=== PATIENT | female | born 1950 | race Caucasian/White ===

== ENCOUNTER 2017-11-01 10:40 | Outpatient (CLI) | payer MEDICARE | END 2017-11-01 10:41 | disposition home or self-care (01) | LOC: BICRAD 10:40 | PROVIDERS: ATTEND Family Medicine | DX: M54.5 Low back pain (principal); M54.6 Pain in thoracic spine; M47.896 Other spondylosis, lumbar region; M43.16 Spondylolisthesis, lumbar region; M47.894 Other spondylosis, thoracic region; M41.9 Scoliosis, unspecified | CPT/HCPCS: 72070; 72100 ==

== ENCOUNTER 2018-03-24 14:09 | Outpatient (CLI) | payer MEDICARE | END 2018-03-24 14:10 | disposition home or self-care (01) | LOC: BICMAMMO 14:09 | PROVIDERS: ATTEND Family Medicine | DX: Z13.820 Encounter for screening for osteoporosis (principal); Z78.0 Asymptomatic menopausal state; M85.852 Other specified disorders of bone density and structure, left thigh; M85.88 Other specified disorders of bone density and structure, other site | CPT/HCPCS: 77080 ==

== ENCOUNTER 2018-05-24 10:19 | Outpatient (CLI) | payer MEDICARE | END 2018-05-24 10:20 | disposition home or self-care (01) | LOC: BICRAD 10:19 | PROVIDERS: ATTEND Family Medicine | DX: R06.02 Shortness of breath (principal) | CPT/HCPCS: 71046 ==

== ENCOUNTER 2018-06-07 10:56 | Outpatient (CLI) | payer MEDICARE | END 2018-06-07 10:57 | disposition home or self-care (01) | LOC: BICMRI 10:56 | PROVIDERS: ATTEND Anesthesiology Pain Medicine | DX: M54.14 Radiculopathy, thoracic region (principal) | CPT/HCPCS: 72146 ==

== ENCOUNTER 2018-07-24 16:50 | Outpatient (CLI) | payer MEDICARE ==
--- NOTE | 2018-07-25 09:43 | MRI ---
MRI RIGHT KNEE WITHOUT CONTRAST: Date: 07/24/18 HISTORY: S83.281A tear of lateral meniscus of the right knee. COMPARISON: MRI right knee from 2013. FINDINGS: Medial Meniscus: Evidence of prior posterior horn medial meniscal repair which is intact. No acute superimposed menisc al tear. Lateral Meniscus: Intact. ACL, PCL, MCL, LCLC: Intact. Extensor Mechanism: Quadriceps tendon, patella, and patellar tendon are all intact. Cartilage: Patellofemoral compartment: There are near full thickness cartilage fissures in the medial trochlea without underlying reactive marrow changes. Medial compartment: There is 25-50% cartilage fraying of the medial compartment without subchondral reactive marrow changes. Lateral compartment: Intact. Muscles: Muscle signal and bulk is normal. Soft Tissues: Trace popliteal cyst. No significant joint effusion. IMPRESSION: 1. No acute internal derangement. Prior medial meniscal repair. 2. Low grade deep infrapatellar bursa effusion. POS: TPC
== END 2018-07-24 16:51 | disposition home or self-care (01) ==
LOC: MRI 16:50
PROVIDERS: ATTEND Orthopaedic Surgery
DX: S83.281A Other tear of lateral meniscus, current injury, right knee, initial encounter (principal); M25.461 Effusion, right knee; Z98.890 Other specified postprocedural states

== ENCOUNTER 2018-10-24 13:46 | Outpatient (CLI) | payer MEDICARE ==
[~2018-10-24 13:46] MED LIST: Gadobenate Dimeglumine 529 MG/1 ML (20ML VIAL) ONE
[2018-10-24 14:45] LABS: Estimated GFR-MDRD - POC Greater than 90
--- NOTE | 2018-10-24 15:58 | MRI ---
MRI BRAIN WITH AND WITHOUT CONTRAST: HISTORY: Ataxia. Vertigo. Unstable gait for many years. COMPARISON: None. TECHNIQUE: Brain MRI is performed with and without intravenous Gadolinium administration. Multisequential, mult iplanar imaging is performed. FINDINGS: No parenchymal hemorrhage. No extraaxial hematoma. No parenchymal mass, mass effect, or midline maria c ft. Brain volume, age appropriate. Cortical carlos-white matter differentiation is preserved. Ventri cles and sulci are patent and symmetric. Central arterial flow voids are maintained. Absent restricted diffusion. Minimal T2 and FLAIR white matter hyperintensities likely due to chronic small-vessel ischemic change . Mild mucosal disease involving the ethmoid air cells. 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 The possibility of a neoplasm in the rig ht maxillary sinus is raised, measuring 2.5 x 1.9 cm. This lesion is noted on a previous MRI from 11/06/2016. Nevertheless, ENT consultation is recommended. No pathologic enhancement of the brain parenchyma. IMPRESSION: 1. Absent restricted diffusion. No acute infarct. 2. Minimal chronic small-vessel ischemic change of the white matter. 3. 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 ENT consultation is recommended. CODE T POS: STEPHANIE
== END 2018-10-24 13:47 | disposition home or self-care (01) ==
LOC: BICMRI 13:46
PROVIDERS: ATTEND Neurological Surgery
DX: R27.0 Ataxia, unspecified (principal); R42 Dizziness and giddiness; I67.82 Cerebral ischemia
CPT/HCPCS: 70553; 82565

== ENCOUNTER 2018-11-23 10:27 | Outpatient (CLI) | payer MEDICARE | END 2018-11-23 10:28 | disposition home or self-care (01) | LOC: BICMAMMO 10:27 | PROVIDERS: ATTEND Family Medicine | DX: Z12.31 Encounter for screening mammogram for malignant neoplasm of breast (principal) | CPT/HCPCS: 77063; 77067 ==

== ENCOUNTER 2019-02-14 10:49 | Outpatient (CLI) | payer MEDICARE | END 2019-02-14 10:50 | disposition home or self-care (01) | LOC: CTENTCT 10:49 | PROVIDERS: ATTEND Specialist | DX: J34.89 Other specified disorders of nose and nasal sinuses (principal); R51 Headache | CPT/HCPCS: 70486 ==

== ENCOUNTER 2019-04-26 11:23 | Day surgery (SDC) | payer MEDICARE ==
[2019-04-25 12:41] VITALS: BMI 26.4
[2019-04-26] MEDS ORDERED: Oxymetazoline HCl 0.05% ( 15 ML ) ONE ×2 (13:58→16:44)
[2019-04-26 14:03] LABS: Anion Gap 11 mmol/L (10-20); BUN (Urea Nitrogen) 11 mg/dL (9.8-20.1); Calc. Creatinine Clearance 84 mL/min (70-130); Calcium 10.1 mg/dL (7.8-10.44); Carbon Dioxide 27 mmol/L (23-31); Chloride 107 mmol/L (98-107); Estimated GFR-MDRD 81; Glucose 85 mg/dL (80-115); Potassium 3.7 mmol/L (3.5-5.1); Sodium 141 mmol/L (136-145)
[2019-04-26] MEDS ORDERED: Lidocaine 1% w/Epinephrine 1:100K 20 ML VIAL ONE (16:43)
[2019-04-26] MEDS ORDERED: EPINEPHrine 1 MG/ML AMP ONE (16:46)
[2019-04-26] MEDS ORDERED: Fentanyl 100 MCG/2 ML VIAL ONE ×2 (16:48→18:12)
[2019-04-26] MEDS ORDERED: Bacitracin Zinc Ointment 30 gm TUBE ONE (17:37)
--- NOTE | 2019-04-27 01:00 | OP ---
DATE OF PROCEDURE: 04/26/2019 PREOPERATIVE DIAGNOSES: Chronic sinusitis, deviated septum, right maxillary sinus mass, hypertrophic inferior turbinates. POSTOPERATIVE DIAGNOSES: Chronic sinusitis, deviated septum, right maxillary sinus mass, hypertrophic inferior turbinates. PROCEDURES PERFORMED: Bilateral nasal endoscopy with maxillary antrostomy, bilateral nasal endoscopy with total ethmoidectomy, bilateral nasal endoscopy with frontal sinusotomy, bilateral nasal endoscopy with sphenoidotomy, bilateral nasal endoscopy with submucosal resection of inferior turbinates and septoplasty. DESCRIPTION OF PROCEDURE: BILATERAL NASAL ENDOSCOPY WITH SUBMUCOSAL RESECTION OF INFERIOR TURBINATES AND SEPTOPLASTY: After consent was obtained, the patient was identified, brought to the operating room, and placed on the operating room table in the supine position. Consent was obtained, notifying the patient of the possibility of additional infections, bleeding, brain injury, and eye/orbital injury. The patient was placed on the operating room table, and general endotracheal anesthesia and intravenous access was obtained. The patient was then positioned, prepped and draped for endoscopic sinus surgery. Nasal preparation included trimming nasal vestibular hairs and spraying in topical Afrin. We then placed Afrin topical solution on nasal pledgets and strategically located them intranasally. The perinasal mucosa was injected with 1% lidocaine with 1:100,000 epinephrine in the submucoperichondrial plane of the septum, lateral nasal wall, and anterior to the uncinate. The patient was then prepped and draped in a sterile fashion and positioned for endoscopic sinus surgery. With the 0-degree endoscope, the patient underwent systematic nasal endoscopy. There were no suspicious internasal masses or lesions identified. We then focused our attention to the osteomeatal complex region under the middle turbinate. The inferior turbinates were visualized with a 0 degree endoscope and outfractured with a Janett elevator. The inferior medial aspect was cauterized with the electrocautery. Hemostasis was obtained . After adequate airway was established, we turned our attention to the contralateral side and used a similar procedure. Again, a Janett elevator was used to outfracture inferior turbinates under endoscopic visualization. With a suction cautery, the free inferior medial aspect was cauterized under direct visualization along the length of the inferior turbinate. At this point, we then turned our attention to the contralateral side and proceeded with endoscopic sinus surgery. At the completion of the case, Rice keel splints were placed in the ethmoid cavities after the ethmoidectomy. There were no complications. The patient tolerated the procedure well and was discharged to the recovery room in stable condition prior to return to the preoperative day stay with ultimate discharge home. Prescriptions for pain medication and antibiotics were provided. The patient received intramuscular Depo-Medrol during the case. After local anesthesia was infiltrated into the submucoperichondrial plane, a standard [place] incision was made with a #15 blade down to the level of the septal cartilage. The caudal elevator was used to elevate the mucoperichondrium from the underlying cartilage. We then proceeded beyond the bony cartilaginous junction and elevated the bony periosteum as well. Great attention was paid to the spur to prevent rent formation in the septal flap. A transcartilaginous incision was then made, while preserving an adequate dorsal and caudal cartilaginous strut for tip support. The deformed cartilage was removed and disarticulated from the bony cartilaginous junction and maxillary crest. This was placed in saline and would later be crushed and returned to the mucoperichondrial envelope. We then elevated the contralateral periosteum from the bony cartilaginous region and removed the deformed portions of the bone and bony spurs. The cartilage was then crushed and placed back into the mucoperichondrial envelope and the mucosa was re-approximated with a quilting stitch composed of rapidly absorbent gut suture. The Iker incision was also closed with interrupted gut suture. At the completion of the case, Mccray splints were placed and suture secured to the caudal septum. SPHENOIDOTOMY: The anterior face of the sphenoid was identified and entered in its extreme anteroinferior aspect. A sphenoid punch was then used to enlarge the sphenoidotomy and no injury to the optic nerve or internal carotid artery occurred. FRONTAL SINUSOTOMY: Following the ethmoidectomy, we then turned our attention to the frontal nasal recess. The agger nasi cells were addressed and the frontal recess was exposed. The natural opening to the frontal sinus was identified. At this point, any obstructing shrouds of mucosa and bony fragments were removed with a curved microdebrider. The wound was then examined and found to be free of any obstructing debris. We then turned our attention to the contralateral side and performed a similar procedure again under endoscopic visualization using a 45-degree scope. We were able to visualize the frontal recess. Obstructing shrouds of mucosa and bone were removed with a microdebrider. The natural os of frontal sinus was identified and enlarged and irrigated. At this point, the frontal sinusotomy was completed and we turned to the next area of concern. TOTAL ETHMOIDECTOMY: The anterior face of the ethmoid bulla was entered and with the micro-debrider, dissection continued posteriorly to the ground lamella. The limits of dissection included the insertion of the middle turbinate, medial orbital wall, and base of skull. We similarly identified the frontal recess and removed shrouds of bone and debris in that region to obtain patency into the agger nasi region and frontal recess. We then entered the ground lamella and its anteroinferior aspect and proceeded posteriorly, opening the posterior ethmoid air-cell system. Again, the limits of dissection included the base of skull and medial orbital wall. MAXILLARY ANTROSTOMY: The uncinate was then identified and the extent of the uncinate was appreciated by out-fracturing the uncinate with the ball-tip probe. We then used the sickle blade to disarticulate the uncinate from the lateral nasal wall. This was then removed with straight biting and upbiting punches with the remaining shrouds of mucosa and bony septum removed with the micro-debrider. The natural os of the maxillary sinus was then identified and enlarged with the maxillary punches and back biting forceps. Job ID: [id number]
--- NOTE | 2019-04-30 08:46 | EKG ---
Test Reason : PREOP Blood Pressure : / mmHG Vent. Rate : 053 BPM Atrial Rate : 053 BPM P-R Int : 160 ms QRS Dur : 086 ms QT Int : 444 ms P-R-T Axes : 027 007 015 degrees QTc Int : 416 ms Sinus bradycardia Otherwise normal ECG When compared with ECG of 11-DEC-2015 13:40, No significant change was found Confirmed by DR. Lauren AMOS ([id number]) on 04/30/2019 8:45:51 AM Referred By: MATTHEW Confirmed By:DR. Lauren AMOS
== END 2019-04-26 20:30 | disposition home or self-care (01) ==
LOC: SDC 11:23
PROVIDERS: ATTEND Specialist
PROC: 099R8ZZ Drainage of Left Maxillary Sinus, Via Natural or Artificial Opening Endoscopic (ICD-10-PCS; principal; 2019-04-26)
PROC: 099Q8ZZ Drainage of Right Maxillary Sinus, Via Natural or Artificial Opening Endoscopic (ICD-10-PCS; 2019-04-26)
PROC: 09BL8ZZ Excision of Nasal Turbinate, Via Natural or Artificial Opening Endoscopic (ICD-10-PCS; 2019-04-26)
PROC: 09BM8ZZ Excision of Nasal Septum, Via Natural or Artificial Opening Endoscopic (ICD-10-PCS; 2019-04-26)
DX: J32.4 Chronic pansinusitis (principal); J34.0 Abscess, furuncle and carbuncle of nose; J34.2 Deviated nasal septum; J34.3 Hypertrophy of nasal turbinates; D49.1 Neoplasm of unspecified behavior of respiratory system; E78.00 Pure hypercholesterolemia, unspecified; M19.90 Unspecified osteoarthritis, unspecified site; I25.10 Atherosclerotic heart disease of native coronary artery without angina pectoris; Z79.899 Other long term (current) drug therapy; Z88.2 Allergy status to sulfonamides
CPT/HCPCS: 36415; 80048; 85014; 85018; 93005; 93010; J0171; J2001; J3010

== ENCOUNTER 2020-04-01 16:00 | Outpatient (CLI) | payer MEDICARE | END 2020-04-01 16:01 | disposition home or self-care (01) | LOC: SLEEPLAB 16:00 | PROVIDERS: ATTEND Internal Medicine Critical Care Medicine | DX: G47.33 Obstructive sleep apnea (adult) (pediatric) (principal); I51.89 Other ill-defined heart diseases | CPT/HCPCS: 95801 ==

== ENCOUNTER 2020-04-29 19:30 | Outpatient (CLI) | payer MEDICARE | END 2020-04-29 19:31 | disposition home or self-care (01) | LOC: SLEEPLAB 19:30 | PROVIDERS: ATTEND Internal Medicine Critical Care Medicine | DX: G47.33 Obstructive sleep apnea (adult) (pediatric) (principal); I51.9 Heart disease, unspecified; G47.10 Hypersomnia, unspecified; R06.83 Snoring; E66.9 Obesity, unspecified; Z68.27 Body mass index [BMI] 27.0-27.9, adult | CPT/HCPCS: 95811 ==

== ENCOUNTER 2020-05-01 08:23 | Outpatient (CLI) | payer MEDICARE ==
--- NOTE | 2020-05-01 09:15 | CT ---
CT Abdomen Pelvis W Con History: Left upper quadrant abdominal pain Comparison: None. Findings: Lung bases are relatively clear. No pericardial effusion. Cholelithiasis. Spleen is unremarkable. Solid mass left adrenal gland measures 1.9 cm in size and is very homogeneous. This mass appears karson lar to a MRI exam from 2013 no follow-up is required. No dilated loops of large or small bowel. The appendix is visualized and is normal. No retroperitoneal periaortic adenopathy. Mild facet arthropathy. Bone island left acetabulum. Old injury of the pubic symphysis and bilateral pubic bodies. Liver is unremarkable. Pancreas is unremarkable. Aortic contour is nonaneurysmal. Normal proximal sma ll bowel rotation. No hydronephrosis. No abnormal renal enhancing mass. Impression: 1. Cholelithiasis without cholecystitis. 2. 1.9 cm homogeneous mass left adrenal gland unchanged from 2013 MRI exam, benign. No follow-up requ ired. 3. Normal appendix. 4. No evidence for diverticulitis.
== END 2020-05-01 08:24 | disposition home or self-care (01) ==
LOC: BICCT 08:23
PROVIDERS: ATTEND Physician Assistant Medical
DX: K59.00 Constipation, unspecified (principal); R10.12 Left upper quadrant pain; K80.20 Calculus of gallbladder without cholecystitis without obstruction; E27.8 Other specified disorders of adrenal gland; Z80.9 Family history of malignant neoplasm, unspecified
CPT/HCPCS: 74177

== ENCOUNTER 2022-11-02 12:25 | Outpatient (CLI) | payer MEDICARE | END 2022-11-02 12:26 | disposition home or self-care (01) | LOC: TBSIIMAG 12:25 | PROVIDERS: ATTEND Neurological Surgery | DX: M54.16 Radiculopathy, lumbar region (principal); M54.6 Pain in thoracic spine; M48.061 Spinal stenosis, lumbar region without neurogenic claudication | CPT/HCPCS: 72146; 72148 ==

== ENCOUNTER 2024-11-09 14:49 | Outpatient (CLI) | payer MEDICARE | END 2024-11-09 14:50 | disposition home or self-care (01) | LOC: BICMAMMO 14:49 | PROVIDERS: ATTEND Obstetrics & Gynecology | DX: N63.20 Unspecified lump in the left breast, unspecified quadrant (principal); R92.1 Mammographic calcification found on diagnostic imaging of breast | CPT/HCPCS: 76642; 77065; G0279 ==